=== PATIENT | female | born 1985 | race Hispanic/Latino ===

== ENCOUNTER 2017-02-28 22:57 | Emergency (ER) | payer BC ==
[2017-03-01] MEDS ORDERED: diphenhydrAMINE HCl 25 MG CAP ONE (00:05)
[2017-03-01] MEDS ORDERED: Ondansetron ODT 4 MG TAB ONE (00:05)
[2017-03-01] MEDS ORDERED: Morphine Sulfate 2 MG/ML SYRINGE ONE (00:05)
[2017-03-01] MEDS ORDERED: Diazepam 5 MG TAB ONE (00:05)
== END 2017-03-01 00:51 | disposition home or self-care (01) ==
LOC: MADERS 22:57
DX: M54.41 Lumbago with sciatica, right side (principal)
CPT/HCPCS: 96372; J2270; Q0162